=== PATIENT | female | born 1990 | race Caucasian/White ===

== ENCOUNTER 2022-08-21 10:38 | Outpatient (REF) | payer MEDICARE, MEDICAID, SELFPAY ==
[2022-08-21 12:26] LABS: Amphetamine Screen Urine Not Detected (Not Detect); Barbiturates, Urine Not Detected (Not Detect); Benzodiazepines Screen Urine Not Detected (Not Detect); Cannabinoid Screen Urine Not Detected (Not Detect); Cocaine Screen Urine Not Detected (Not Detect); Fentanyl, urine Not Detected (Not Detect); Opiate Screen Urine Not Detected (Not Detect); Phencyclidine Screen Urine Not Detected (Not Detect)
== END 2022-08-21 10:39 | disposition home or self-care (01) ==
LOC: HO.PHPLNP 10:38
PROVIDERS: Visit Provider Nurse Practitioner Psychiatric/Mental Health
DX: F33.1 Major depressive disorder, recurrent, moderate (principal)
CPT/HCPCS: 80307

== ENCOUNTER 2022-08-29 10:30 | Outpatient (RCR) | payer MEDICARE, MEDICAID, SELFPAY ==
[2022-08-17 11:05] VITALS: BMI 32.5
--- NOTE | 2022-08-17 14:05 | PC.ADMIT ---
Patient is a 32 year old female who was referred to [facility] by her therapist d/t increased depression and poor boundaries at work that resulted in patient being fired from 2 jobs one of which she was employed for 12 years. Patient reportedly was displaying inappropriate behaviors at work and threatening co-workers after she was fired. See Integrative Assessment for more information. Patient currently presents with depressed mood and anxious affect. Upset regarding stressful living situation and the conflict in her home stating she has been arguing with her cousin. Patient was placed in her cousins care as part of a foster care program. Patient reports she has been isolating at home and sleeping 10-12 hours a day. Patient is alert and oriented x4. Calm and cooperative. Presented with depressed mood and anxious affect. Denied SI or thoughts to harm herself. Patient given a copy of her safety plan if needed. Medications reconciled with patient and patient's pharmacy. Patient reports taking medications as prescribed.
[2022-08-17 14:10] VITALS: BP 98/60; PULSE 80; TEMP 37.3
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
--- NOTE | 2022-08-24 07:44 | PC.NURSE ---
Case opened in treatment team
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
--- NOTE | 2022-08-28 15:25 | PC.NURSE ---
I spoke withg the clients therapist, Kamala Dean [facility] re clients progress here and discharge plans.
--- NOTE | 2022-08-29 12:12 | HO.PHPPROGNO ---
Subjective Subjective Date of Service: 08/29/22 Reason For Visit: depression Medical Problems Affecting Mental Status: No Interim History: Describes mood as ?good ?. Has found program to be helpful. No SI, no HI, no safety concerns. Satisfied with current medications. Has liked program here, states will miss it after today, and has made some friends. Medication Compliance: Yes Side effects from medications: No Attending Groups: Yes Review of Systems Acute medical concerns: No Medical Review of Systems: unchanged Review of Systems Review of Systems Yes all other systems are reviewed and are negative Constitutional: Reports no additional constitutional complaints Mental Status Exam Mental Status Exam Narrative: NAD. Patient Appearance: Appropriate Patient Orientation: Person, Place, Time and Situation Level of Consciousness: Appropriate Patient Behavior: Appropriate, Cooperative and Good Eye Contact Mood Description: Calm and Appropriate Affect Description: Calm and Appropriate Patient Cognition Impaired: No Ability to Follow Directions: Good Speech Pattern: Appropriate Memory Description: Intact Hallucinations: None Delusions: Not Present Thought Process: Intact Thought Content: positive for [place] Judgement: Good Diagnostics Vital Signs (24Hr): BMI result Body Mass Index 32.5 Assessment & Plan Assessment & Plan (1) Major depressive disorder, recurrent, moderate: Status: Acute Code(s): F33.1 - Major depressive disorder, recurrent, moderate Assessment and Plan: Yojana reports she feels stable for discharge today from [facility]. States she has enjoyed her time here, has made friends, has worked on establishing boundaries and respecting other people's boundaries. Denies any SI/HI. Reports she has not acted aggressively at home. Focused on dealing with her emotions when she gets irritable. Taking medications as currently prescribed by outpatient provider. Has ISP tomorrow, looking forward to it. (2) Generalized anxiety disorder: Status: Acute Code(s): F41.1 - Generalized anxiety disorder (3) Mild intellectual disabilities: Status: Acute Code(s): F70 - Mild intellectual disabilities Plan Discharge paperwork, patient instructions reviewed. 1. Patient appears stable for discharge from [facility] at this time. 2. Patient to follow up with outpatient providers going forward. Patient educated on: diagnosis Informed Consent: understands Reason for contiued partial hosp. stay Substantial Risk for: stable for discharge Certification I certify that partial hospital treatment is medically necessary due to the symptoms and problems resulting from the patient's mental illness and the failure to treat the patient at the partial hospital level of care would likely result in the patient requiring inpatient psychiatric care which could not be prevented at a less intensive level of care. I spent minutes with the patient and/or on the patient floor today, greater than?50% of which was spent counseling/coordinating care. Discharge Plan Discharge Attending provider: Lalit Weinstein Medications: No Action divalproex [Depakote] 250 mg Tablet,Delayed Release (Dr/Ec) 250 mg PO DAILY Rx Instructions: Take with 500 mg tablet. ibuprofen [Motrin] 800 mg Tablet See Rx Instructions .ROUTE .COMPLEX PRN (Reason: Migraine Headache) Rx Instructions: Take at onset of migraine. Not to exceed 5 tabs in a week. sumatriptan succinate [Imitrex] 50 mg Tablet 50 mg PO DAILY PRN (Reason: Migraine Headache) Rx Instructions: May repeat in 2 hours if ineffective. propranolol 10 mg Tablet 10 mg PO BID hydroxyzine pamoate 25 mg Capsule 25 mg PO BEDTIME PRN (Reason: anxiety,insomnia) divalproex [Depakote ER] 250 mg Tablet Extended Release 24 Hr 500 mg PO DAILY Rx Instructions: Take with 250 mg tablet. Vraylar 3 mg Capsule 3 mg PO DAILY Rx Instructions: Take in the evening. Stand Alone Forms: Patient Portal Discharge page Patient Education: Depression (DC), Generalized Anxiety Disorder (GEN)
== END 2022-08-29 23:59 | disposition home or self-care (01) ==
LOC: HO.PHPA 10:30
PROVIDERS: Visit Provider Psychiatry & Neurology Psychiatry
DX: F33.1 Major depressive disorder, recurrent, moderate (principal); F41.1 Generalized anxiety disorder; F70 Mild intellectual disabilities; Z79.899 Other long term (current) drug therapy
CPT/HCPCS: 90791; 90792; 90853

== ENCOUNTER 2025-04-16 18:47 | Emergency (ER) | payer MEDICARE, MEDICAID, SELFPAY ==
[2025-04-16 18:49] VITALS: BP 123/81; PULSE 114; RESP 17; TEMP 36.9; O2SAT 98; BMI 25.7
--- NOTE | 2025-04-16 18:50 | ED_ITS ---
HPI - General Adult General Chief complaint: Psychiatric Symptoms Stated complaint: Psych Eval Time Seen by Provider: 04/16/25 19:20 History of Present Illness ED Provider: Moose Montoya MD HPI narrative: [age] female. Increased ?anger and self-harm?. Grabbing and ripping in her skin. Limited history. The patient is description of the reasoning for presenting to the emergency department as ?my boyfriend broke up with me in broke my heart ?, ?I was getting angry and grabbing at my skin?. She seems to have poor insight into the reasons of her presentation but is not distressed or overly psychotic DTS as involved. History of depression. Previous psychiatric evaluation here 2021 revealed : MDD, CHASE, mild intellectual disability. Related Data Home Medications ?Medication ?Instructions ?Recorded ?Confirmed cariprazine 3 mg capsule (Vraylar) 3 mg PO BEDTIME 08/17/22 04/16/25 divalproex 250 mg tablet,delayed 250 mg PO BEDTIME 08/17/22 04/16/25 release (Depakote) divalproex 250 mg tablet,extended 500 mg PO BEDTIME 08/17/22 04/16/25 release 24 hr (Depakote ER) ibuprofen 800 mg tablet See Rx Instructions .Route 08/17/22 04/16/25 .COMPLEX PRN Migraine Headache fluoxetine 40 mg capsule 40 mg PO DAILY 04/16/25 04/16/25 multivitamin with folic acid 400 1 tab PO DAILY 04/16/25 04/16/25 mcg tablet (Daily-Maritza (with folic acid)) Allergies Allergy/AdvReac Type Severity Reaction Status Date / Time topiramate [From Topamax] Allergy Itching Verified 04/16/25 18:54 [facility] Past Medical History Medical History Migraine Social History Social History Household Members: Other Household Members Other:: Residing with cousin and family Patient Tobacco Use Status: Never used Tobacco Advance Directives: No Advance Directives Information Provided: No Do you have a plan to hurt others: No Plan Patient : No Physical Exam ED Vital Signs: Vital Signs - 24 hr 04/17/25 08:08 04/17/25 09:40 Temperature 97.8 F 98.0 F Pulse Rate 91 88 Respiratory Rate 14 14 Blood Pressure 107/68 107/68 Pulse Oximetry 100 100 Oxygen Delivery Method Room Air BMI result Body Mass Index 25.7 Const Other: EXAM: Gen: Alert, awake, well appearing, well hydrated. Smiling and interactive with myself and staff. Not responding to internal stimuli or psychotic Head: Atraumatic Eyes: Anicteric, Normal conjunctiva. ENT: Moist mucosa, no pallor. ? Neck: Supple. Respiratory: Breathing comfortably, No distress.Clear to auscultation bilaterally, symmetric chest expansion, No wheeze, rales, ronchi. Cardiovascular: Regular rate and rhythm. No murmurs or rub. Well perfused periphery, warm extremities. No edema. ? Abdominal: Soft, no objective distension. No palpable masses or obvious organomegaly. No focal tenderness, no guarding, no rebound tenderness or other peritoneal findings. : No flank tenderness. Neuro: Alert. Gross movement of all extremities intact. ? Psych: Pleasant interactive smiling intermittently sad. Denies SI or HI to me. Does not appear intoxicated no clear toxidrome Vital signs: See flowsheet Course Course Course Narrative: RME, this is a rapid medical exam performed by Jason Erickson please refer to primary provider for complete H&P- 35 year old female presents for evaluation of anger issues and depression. She got a new primary doctor and her meds were changed. Her caregiver reports worsening depression and anger since. She has been exhibiting self harm behaviors but is not suicidal. Plan for labs and medical clearance for care team consult Medications Administered Discontinued Medications Generic Name Dose Route Start Last Admin Trade Name Melissa PRN Reason Stop Dose Admin Cariprazine 3 mg 04/16/25 22:15 04/16/25 22:52 Cariprazine Hcl 3 Mg Capsule PO 3 mg BEDTIME STEPHANIA Administration Divalproex Sodium 250 mg 04/16/25 22:15 04/16/25 22:52 Divalproex Sodium 250 Mg Tablet.Dr PO 250 mg BEDTIME STEPHANIA Administration Divalproex Sodium 500 mg 04/16/25 22:15 04/16/25 22:51 Divalproex Sodium Er 500 Mg Tab.Er.24h PO 500 mg BEDTIME STEPHANIA Administration Fluoxetine HCl 40 mg 04/17/25 09:00 04/17/25 08:03 Fluoxetine Hcl 20 Mg Capsule PO 40 mg DAILY STEPHANIA Administration Lorazepam 1 mg 04/16/25 22:03 04/16/25 22:52 Lorazepam 1 Mg Tablet PO 04/16/25 22:04 1 mg ONCE ONE Administration Multivitamins/Vitamin C 1 tab 04/17/25 09:00 04/17/25 09:02 Multivitamin Tablet PO 1 tab DAILY STEPHANIA Administration Medical Decision Making Medical Decision Making MDM Narrative: [age] female with intellectual disability, GERD, MDD. Pending lab work toxicology. No reported SI or HI. Probably acute on chronic depression or situational depression/grief we will need care team evaluation. Doubt acute encephalopathy or medical emergency Sign out 21:00 to overnight physician Time: 00:21 Date: 04/17/25 Provider: Luciano Ovalles MD Start physician observation Patient is placed in physician observation for psychiatric evaluation. Patient was evaluated by the care team and I obtained the following information from the care team clinician: The patient is living with her cousin. The patient has been having increased anger outbursts, screaming and having significant mood swings. The patient has a new prescribing nurse practitioner who made recent medication changes in the patient psychiatric medications. The cousin in his concerned that there is more going on then just depression and anxiety and they are waiting for a neuro psychiatric evaluation. The cousin was concerned about the patient's behavior and called the ambulance and the patient was brought to the emergency department for evaluation. The patient has no suicidal or homicidal ideation and does not meet admission criteria however the patient may benefit from a partial outpatient program. Care team his recommending that we observe the patient overnight and care team clinician will contact the patient's cousin in the morning to discuss discharge planning with the patient's cousin. Therefore we will continue to monitor the patient in the ED Behavioral Health Unit until disposition can be determined. Time: 09:23 Date: 04/17/25 Provider: Luciano Ovalles MD Physician observation ended at 09:23 hours. Patient cleared by care team and referred for PHP we will be discharged Lab Data 04/16/25 21:16 04/16/25 21:16 Labs: Lab Results 04/16/25 04/16/25 04/16/25 Range/Units 19:30 21:16 21:31 WBC 6.6 (4.8-10.8) X10*3/uL RBC 4.36 (4.20-5.50) X10*6/uL Hgb 14.3 (12.0-16.0) g/dl Hct 41.3 (37.0-47.0) % MCV 94.7 (80.0-98.0) fL MCH 32.8 (27.0-33.0) pg MCHC 34.6 (31.0-35.0) g/dl RDW 11.9 (11.0-16.0) % Plt Count 255 (160-400) X10*3/uL MPV 8.8 L (9.4-12.3) fL Immature Gran % (Auto) 0.3 (0.0-0.4) % Neut % (Auto) 52.5 (45-73) % Lymph % (Auto) 35.6 (20-40) % [place] % (Auto) 9.0 (2-11) % Eos % (Auto) 2.0 (0-4) % Baso % (Auto) 0.6 (0-2) % Lymph # (Auto) 2.3 (1.2-4.9) X10*3/uL [place] # (Auto) 0.6 (0.1-1.2) X10*3/uL Eos # (Auto) 0.1 (0.0-0.4) X10*3/uL Baso # (Auto) 0.0 (0.0-0.2) X10*3/uL Abs Immat Gran (auto) 0.02 (0.00-0.03) X10*3/uL Absolute Neuts (auto) 3.5 (2.0-8.3) x10*3/uL Absolute Nucleated RBC 0.000 (0.0-0.012) X10*3/uL Nucleated RBC % (auto) 0.0 (0.0-0.2) /100WBC Sodium 145 (135-145) mmol/L Potassium 4.2 (3.3-5.1) mmol/L Chloride 107 (96-108) mmol/L Carbon Dioxide 28 (22-29) mmol/L Anion Gap 14 (12-20) BUN 11 (9-16) mg/dL Creatinine 0.94 (0.5-1.4) mg/dL Estim Creat Clear Calc 79.8 Estimated GFR > 60 Random Glucose 97 (60-115) mg/dL Calcium 9.8 (8.4-10.2) mg/dL Total Bilirubin 0.3 (0.0-1.0) mg/dL AST 28 (5-31) U/L ALT 19 (0-31) U/L Alkaline Phosphatase 50 (39-117) U/L Total Protein 8.1 H (6.5-8.0) g/dL Albumin 5.3 H (3.5-5.0) g/dL Urine Test NEGATIVE (NEGATIVE) Salicylates < 5.0 L (15-30) mg/dL Urine Opiates Screen Not Detected (Not Detect) Ur Buprenorphine Scrn Not Detected (Not Detect) ng/mL Ur Oxycodone Screen Not Detected (Not Detect) ng/mL Urine Methadone Screen Not Detected (Not Detect) ng/mL Urine Fentanyl Screen Not Detected (Not Detect) Acetaminophen < 3 (<30) mcg/mL Ur Barbiturates Screen Not Detected (Not Detect) Valproic Acid Cancelled 21.3 L Ur Phencyclidine Scrn Not Detected (Not Detect) Ur Amphetamines Screen Not Detected (Not Detect) U Benzodiazepines Scrn Not Detected (Not Detect) Urine Cocaine Screen Not Detected (Not Detect) U Marijuana (THC) Screen Not Detected (Not Detect) Ethyl Alcohol < 10 mg/dL Discharge Plan Discharge Clinical Impression: Mood swing, Outbursts of anger Patient Disposition: Home, Self-Care Additional Instructions: Evaluated at emergency department, cleared for discharge, follow recommendations provided to by our care team any other issues concerns come back to the ER Prescriptions: No Action divalproex [Depakote] 250 mg Tablet,Delayed Release (Dr/Ec) 250 mg PO BEDTIME Rx Instructions: Take with 500 mg tablet. ibuprofen [Motrin] 800 mg Tablet See Rx Instructions .ROUTE .COMPLEX PRN (Reason: Migraine Headache) Rx Instructions: Take at onset of migraine. Not to exceed 5 tabs in a week. divalproex [Depakote ER] 250 mg Tablet Extended Release 24 Hr 500 mg PO BEDTIME Rx Instructions: Take with 250 mg tablet. Vraylar 3 mg Capsule 3 mg PO BEDTIME Rx Instructions: Take in the evening. fluoxetine 40 mg capsule 40 mg PO DAILY multivitamin with folic acid [Daily-Maritza (with folic acid)] 400 mcg tablet 1 tab PO DAILY Interventions: [place]-Suicide Risk Severity Scale Last Done: 04/16/25 20:38 ED Discharge Assessment Last Done: 04/17/25 09:40 Discharge Date/Time: 04/17/25 10:18 Print Language: [place]
[2025-04-16 19:41] LABS: UPreg QC Valid YES; Urine Pregnancy NEGATIVE (NEGATIVE)
--- NOTE | 2025-04-16 19:42 | PC.NURSE ---
patient brought in from waiting room soon after attended by cousin, caregiver, apparently no recent changes in sleep or oral intake, some reent med changes, maintins safe behvior presently cousin reports outbusts are uncontrollable
[2025-04-16 19:50] LABS: Amphetamine Screen Urine Not Detected (Not Detect); Barbiturates, Urine Not Detected (Not Detect); Benzodiazepines Screen Urine Not Detected (Not Detect); Buprenorphine Scr Not Detected (Not Detect); Cannabinoid Screen Urine Not Detected (Not Detect); Cocaine Screen Urine Not Detected (Not Detect); Fentanyl, urine Not Detected (Not Detect); Methadone Screen, Urine Not Detected (Not Detect); Opiate Screen Urine Not Detected (Not Detect); Oxycodone Screen Urine Not Detected (Not Detect); Phencyclidine Screen Urine Not Detected (Not Detect)
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
[2025-04-16 21:22] LABS: MANUAL DIFF FLAG NO
[2025-04-16 21:26] LABS: Basophils Percent Auto 0.6 % (0-2); Eosinophils Absolute Auto 0.1 X10*3/uL (0.0-0.4); Hematocrit 41.3 % (37.0-47.0); Hemoglobin 14.3 g/dl (12.0-16.0); Imm Gran Abs Auto 0.02 X10*3/uL (0.00-0.03); Imm Gran Pct Auto 0.3 % (0.0-0.4); Lymphocytes Absolute Auto 2.3 X10*3/uL (1.2-4.9); Lymphocytes Percent Auto 35.6 % (20-40); Mean Corpuscular HGB Conc 34.6 g/dl (31.0-35.0); Mean Corpuscular Hemoglobin 32.8 pg (27.0-33.0); Mean Corpuscular Volume 94.7 fL (80.0-98.0); Mean Platelet Volume 8.8 fL (9.4-12.3); Monocytes Absolute Auto 0.6 X10*3/uL (0.1-1.2); Neutrophils Absolute Auto 3.5 x10*3/uL (2.0-8.3); Neutrophils Percent Auto 52.5 % (45-73); Platelet Count 255 X10*3/uL (160-400); Red Blood Count 4.36 X10*6/uL (4.20-5.50); Red Cell Distribution Width 11.9 % (11.0-16.0); White Blood Count 6.6 X10*3/uL (4.8-10.8)
[2025-04-16 21:47] LABS: Valproate 21.3 mcg/mL (50.0-100.0)
[2025-04-16 21:50] LABS: Acetaminophen LAB < 3 mcg/mL (<30); Alanine Aminotransferase 19 U/L (0-31); Albumin Level 5.3 g/dL (3.5-5.0); Alkaline Phosphatase 50 U/L (39-117); Anion Gap 14 (12-20); Aspartate Amino Transferase 28 U/L (5-31); Bilirubin Total 0.3 mg/dL (0.0-1.0); Blood Urea Nitrogen 11 mg/dL (9-16); Calcium 9.8 mg/dL (8.4-10.2); Carbon Dioxide 28 mmol/L (22-29); Chloride 107 mmol/L (96-108); Creatinine Clr Calc Pharmacy 79.8; Estimated Glomerular Filt Rate > 60; Ethanol < 10 mg/dL; Glucose Random 97 mg/dL (60-115); Potassium 4.2 mmol/L (3.3-5.1); Salicylate < 5.0 mg/dL (15-30); Sodium 145 mmol/L (135-145); Total Protein 8.1 g/dL (6.5-8.0)
--- NOTE | 2025-04-16 22:10 | PHA.MEDREC ---
Pharmacy Consult ? Medication Reconciliation Pharmacy has completed the medication reconciliation. Reviewed med rec done by nursing. Asked Rylee about the Vraylar 4.5mg being filled more recently and she reported that patient's caregiver Molly stated that hasn't been started yet.
--- NOTE | 2025-04-16 22:41 | PC.NURSE ---
medications are delayed no staff coverage
[2025-04-16] MEDS: Divalproex Sodium ER 500 MG TAB.ER.24H PO (22:51)
[2025-04-16] MEDS: Divalproex Sodium 250 MG TABLET.DR PO (22:52)
[2025-04-16] MEDS: LORazepam 1 MG TABLET PO (22:52)
[2025-04-16] MEDS: Cariprazine HCl 3 MG CAPSULE PO (22:52)
--- NOTE | 2025-04-17 07:23 | PC.NURSE ---
ASSUMED CARE OF PT AT APPROXIMATELY [id number]. PT IS RESTING COMFORTABLY AT THIS TIME. NO APPARENT DISTRESS
[2025-04-17] MEDS: FLUoxetine HCl 20 MG CAPSULE 40 MG PO (08:03)
[2025-04-17 08:08] VITALS: BP 107/68; PULSE 91; RESP 14; TEMP 36.6; O2SAT 100
[2025-04-17] MEDS: Multivitamin TABLET 1 TAB PO (09:02)
[2025-04-17 09:40] VITALS: BP 107/68; PULSE 88; RESP 14; TEMP 36.7; O2SAT 100
--- NOTE | 2025-04-20 16:48 | MHC.CARE ---
RAD Team faxed a PHP referral for this pt. Will follow up tomorrow
== END 2025-04-17 10:18 | disposition home or self-care (01) ==
PROVIDERS: Emergency Medicine; Physician Assistant; Emergency Provider Emergency Medicine; PCP Internal Medicine
DX: F33.1 Major depressive disorder, recurrent, moderate (principal); R45.6 Violent behavior; R45.851 Suicidal ideations; Z79.899 Other long term (current) drug therapy; Z51.81 Encounter for therapeutic drug level monitoring
CPT/HCPCS: 36415; 80053; 80143; 80164; 80179; 80307; 81025; 85025; 99284; S9485